=== PATIENT | female | born 1945 | race Caucasian/White ===

== ENCOUNTER 2019-05-05 11:17 | Observation (INO) ==
[2019-05-05] MEDS ORDERED: ASPIRIN PO ONE (11:33)
[2019-05-05 12:03] LABS: BASO# 0.02 X1000 (0.0-0.2); BASO% 0.4 % (0.0-0.8); EOS# 0.27 X1000 (0.0-0.7); EOS% 4.7 % (0.0-10.0); HEMATOCRIT 37.9 % (37.0-47.0); HEMOGLOBIN 11.7 g/dL (12.0-16.0); IMM GRAN# 0.04 X1000 (0.0-0.04); IMM GRAN% 0.7 % (0.0-0.5); LYMPH# 1.41 X1000 (1.2-3.4); LYMPH% 24.7 % (20.5-51.1); MCH 28.2 PG (27-31); MCHC 30.9 g/dL (33-37); MCV 91.3 FL (81-99); MONO# 0.37 X1000 (0.11-0.59); MONO% 6.5 % (1.7-9.3); MPV 9.8 FL (7.4-10.4); NEUT# 3.59 X1000 (1.4-6.5); PLT 290 X1000 (130-400); RBC 4.15 XMIL (4.2-5.4); RDW 12.3 % (11.5-14.5)
[2019-05-05 12:15] LABS: INR 0.95; PROTIME 13.2 Seconds (11.0-16.0)
[2019-05-05 12:16] LABS: PTT 30.3 Seconds (22.3-41.8)
[2019-05-05 12:19] LABS: AGAP 12; ALBUMIN 4.1 g/dL (3.5-5.0); ALKALINE PHOSPHATASE 98 U/L (32-104); BUN 10 mg/dL (8-22); CALCIUM 8.7 mg/dL (8.8-10.2); CHLORIDE 104 mmol/L (98-107); CK PROFILE 44 U/L (24-173); COSMO 281; CREATININE 0.9 mg/dL (0.5-0.9); ESTIMATED GFR > 60; GLUCOSE 148 mg/dL (70-104); GOT 13 U/L (10-30); GPT 7 U/L (10-36); POTASSIUM 3.9 mmol/L (3.5-5.1); SODIUM 140 mmol/L (136-145); TCO2 24 mmol/L (25-35); TOTAL PROTEIN 6.5 g/dL (6.3-8.3)
--- NOTE | 2019-05-05 13:01 | Diag Imaging Result Doc PS360 ---
EXAM: CHEST-2 VIEWS 05/05/2019 HISTORY: chest pain TECHNIQUE: PA and lateral chest COMMENT: There is minimal platelike atelectasis in the lingula which was not present on 07/23/2017. Otherwise the appearance the chest has not changed significantly. IMPRESSION: Minimal lingular atelectasis. Electronically signed by Ravi Servin 05/05/2019 12:58 PM
[2019-05-05] MEDS ORDERED: MORPHINE IV PRN (13:41)
[2019-05-05] MEDS ORDERED: ZOFRAN IV PRN (13:41)
--- NOTE | 2019-05-05 14:41 | EKG Report ---
Test Performed on : 05/05/2019 11:31:08 AM Test Reason : chest pain Blood Pressure : / mmHG Vent. Rate : 083 BPM Atrial Rate : 083 BPM P-R Int : 134 ms QRS Dur : 062 ms QT Int : 382 ms P-R-T Axes : 074 010 060 degrees QTc Int : 448 ms Normal sinus rhythm. Normal ECG When compared with ECG of 23-JUL-2017 17:54, No significant change was found Unconfirmed Result
[2019-05-05] MEDS ORDERED: XANAX PO ONE (14:42)
[2019-05-05] MEDS ORDERED: MORPHINE ONE (14:59)
[2019-05-05] MEDS ORDERED: ZOFRAN ONE (14:59)
[2019-05-05] MEDS ORDERED: MORPHINE IV ONE (15:13)
[2019-05-05] MEDS ORDERED: ZOFRAN IV ONE (15:13)
[2019-05-05] MEDS ORDERED: ZOFRAN ODT PO PRN (19:17)
[2019-05-05] MEDS ORDERED: IMITREX PO PRN (19:17)
[2019-05-05] MEDS ORDERED: PHENERGAN PO PRN (19:17)
[2019-05-05] MEDS: ZANAFLEX PO SCH (20:37)
[2019-05-05] MEDS: IMITREX PO PRN (20:37)
[2019-05-05] MEDS: XANAX PO PRN (20:42)
[2019-05-05] MEDS ORDERED: ZOLOFT PO SCH (21:00)
[2019-05-05] MEDS ORDERED: RESTORIL PO SCH ×2 (21:00)
[2019-05-05] MEDS ORDERED: LOVENOX 1 MG/KG SUBQ SCH (21:00)
[2019-05-05] MEDS ORDERED: TEMAZEPAM 60 MG PO SCH (21:00)
[2019-05-05] MEDS ORDERED: RESTORIL PO ONE (23:14)
[2019-05-06] MEDS: IMITREX PO PRN ×2 (01:52→13:03)
--- NOTE | 2019-05-06 04:30 | EKG Report ---
Test Performed on : 05/06/2019 00:47:35 AM Test Reason : cp Blood Pressure : / mmHG Vent. Rate : 049 BPM Atrial Rate : 049 BPM P-R Int : 164 ms QRS Dur : 066 ms QT Int : 502 ms P-R-T Axes : 060 023 069 degrees QTc Int : 453 ms Sinus bradycardia. Otherwise normal ECG When compared with ECG of 05-MAY-2019 11:31, (Unconfirmed) Vent. rate has decreased BY 34 BPM Confirmed by Patricio Joe MD ([id number]) on 05/14/2019 11:47:08 AM
[2019-05-06] MEDS: ZANAFLEX PO SCH ×2 (05:48→12:59)
[2019-05-06] MEDS ORDERED: SYNTHROID PO SCH ×3 (07:00→08:00)
--- NOTE | 2019-05-06 07:58 | PROVIDER DOCUMENTATION ---
This chart was entered by Elvira Bustillo Scribe, acting as scribe for Annika Figueroa MD. HPI-Chest Pain - General Chief Complaint: Chest Pain Stated Complaint: CHEST PAIN Time Seen by Provider: 05/05/19 12:02 Source: patient Allergies/Adverse Reactions: Patient Allergies Allergy/AdvReac Type Severity Reaction Status Date / Time codeine AdvReac NAUSEA Verified 07/23/17 17:49 Home Medications: Home Medication List Medication Instructions Recorded Confirmed Last Taken Type Alprazolam [Xanax] 1 mg PO 4XDAY PRN PRN 01/17/15 05/05/19 05/05/19 History Sertraline [Zoloft] 100 mg PO QHS 01/17/15 05/05/19 02/21/15 History Estrogens, Conjugated [Premarin] 0.625 mg PO DAILY 01/31/17 05/05/19 05/04/19 History Promethazine [Phenergan] 25 mg PO Q6H PRN PRN #20 tablet 01/31/17 05/05/19 Unknown Rx Tizanidine [Zanaflex] 4 mg PO Q8HR #20 tablet 01/31/17 05/05/19 Unknown Rx Sumatriptan Succinate [Imitrex] 50 mg PO DIRECTED PRN PRN #8 06/24/1808/11 Unknown Rx tablet Levothyroxine [Synthroid] 150 microgm PO DAILY@0700 05/05/19 05/05/19 Unknown History Temazepam [Restoril] 60 mg PO QHS 05/05/19 05/05/19 Unknown History - History of Present Illness-CP Nature of Presenting Problem: Patient is a 73 year old female who presents with left side chest pain. States diaphoresis and shortness of breath with chest pain. Reports symptoms started last night. Denies nausea. Location: reports: other (left side) Chest Pain Radiation: reports: no radiation Quality of Pain: reports: pressure Severity in ED: mild Onset/Duration: last night Timing: still present, intermittent, getting worse Context/Activities at Onset: reports: light activity Associated Symptoms: reports: diaphoresis, shortness of breath Similar Symptoms Previously?: Yes Recently Seen Here or By Another Healthcare Provider: No Review of Systems - Adult - REVIEW OF SYSTEMS - ADULT Constitutional: reports: no symptoms reported. denies: chills, fever, fatique Eyes: reports: no symptoms reported Ears, Nose, Mouth & Throat: reports: no symptoms reported Cardiovascular: reports: see HPI, chest pain. denies: irregular heart rate, palpitations Respiratory: reports: see HPI, shortness of breath. denies: cough, wheezing Gastrointestinal: reports: no symptoms reported Genitourinary: reports: no symptoms reported Musculoskeletal: reports: no symptoms reported Integumentary: reports: no symptoms reported Neurological: reports: no symptoms reported Psychiatric: reports: no symptoms reported Endocrine: reports: no symptoms reported Hematologic/Lymphatic: reports: no symptoms reported Allergic/Immunologic: reports: no symptoms reported All Other Systems: Reviewed and Negative Past History - Adult - PAST MEDICAL HISTORY-ADULT Review of Records: reports: Old Records Reviewed, Social history reviewed & non- contributory. Major Childhood Illnesses: reports: denies history Cardiovascular: reports: denies history Respiratory: reports: denies history Gastrointestinal: reports: denies history Obstetrical/Gynecological: reports: denies history Genitourinary: reports: denies history Musculoskeletal: reports: chronic pain, fibromyalgia Neurological: reports: headaches/migraines Psychiatric: reports: denies history Endocrine/Immune: reports: thyroid disorder Other Conditions: reports: denies history - PRIOR SURGERIES/PROCEDURES Surgical/Procedure History: reports: cholecystectomy, hysterectomy, joint replacement, back/neck - IMMUNIZATION STATUS Childhood Immunizations: See Nurse Assessment Flu Vaccine: See Nurse Assessment - FAMILY HISTORY Family History: reviewed, not pertinent - SOCIAL HISTORY Smoking: denies Substance Use: denies Living Situation: family Physical Exam-General - PHYSICAL EXAM-ADULT Initial Vital Signs Reviewed: Yes - CONSTITUTIONAL General Appearance: alert, no apparent distress. negative: lethargic - HEAD, EARS, NOSE, MOUTH & THROAT HENMT: normocephalic/atraumatic, moist mucous membranes. negative: angioedema - RESPIRATORY Respiratory: chest non-tender, lungs clear, normal breath sounds. negative: respiratory distress, crackles, rhonchi - CARDIOVASCULAR Cardiovascular: normal peripheral pulses, regular rate, rhythm. negative: tachycardia - GASTROINTESTINAL (ABDOMEN) Abdominal Exam: normal bowel sounds, non tender, soft. negative: distended, guarding, rigid - MUSCULOSKELETAL Extremity: normal inspection. negative: deformity, erythema - SKIN Integumentary: normal color, normal turgor, warm/dry. negative: diaphoresis, jaundice, rash - NEUROLOGIC Neurologic: grossly normal. negative: aphasia, facial droop - PSYCHIATRIC Psych/Mental Status: normal mood/affect, oriented x 3. negative: anxious, paranoid - HEART Score HEART Score: History: Slightly Suspicious HEART Score: ECG: Non-Specific Repolarization Disturbance/LBBB/PM HEART Score: Age: > or = 65 Years HEART Score: Risk Factors for Atherosclerotic Disease: 1 or 2 Risk Factors HEART Score: Troponin: < or = Normal Limit Total HEART Score:: 4 Progress - PLAN OF CARE/RESULTS Result Diagrams: 05/05/19 11:47 05/05/19 11:47 - EKG 1 Time of EKG reading by physician:: 11:31 EKG Read and Signed by:: Annika Figueroa EKG Interpretation (*Must complete 3 of following elements*): Normal Rate: 83 Rhythm: normal sinus rhythm Bogard: normal QRS: normal SC Interval: normal ST Wave: normal Comments: normal ECG - XRAY 1 XRAY Study: Chest Impression: See EMR Report ( EXAM: CHEST-2 VIEWS 05/05/2019 HISTORY: chest pain TECHNIQUE: PA and lateral chest COMMENT: There is minimal platelike atelectasis in the lingula which was not present on 07/23/2017. Otherwise the appearance the chest has not changed significantly. IMPRESSION: Minimal lingular atelectasis. Electronically signed by Ravi Servin 05/05/2019 12:58 PM 05/05/19 1258 Interpreting Physician: Ravi Servin MD Dictated Date/Time: 05/05/19 1258 cc: Annika Figueroa MD; Patricio Joe MD) - CONSULTS/PCP/HOSPITALIST Notification #1 *Consult/PCP/Hospitalist*: Dr. Joe Time Discussed: 13:40 Reason/Comments: Dr. Figueroa consulted with Dr. Joe about patient. Consult Disposition: Admit Departure - Departure Date of Disposition Decision: 05/05/19 Time of Disposition Decision: 13:40 DIAGNOSIS: Chest pain Disposition: ADMITTED INPATIENT 09 Certified Medical Emergency: Emergent Condition: Stable - Critical Care Note This patient required my direct & personal management of CC.: No Attestation - Physician/ SANTA Attestation The physician spent face to face time with patient:: Yes Advanced Practice Provider documentation review:: Supervising physician onsite and consulted in the evaluation and care of this patient. The physician did have a face to face encounter with the patient. This chart was documented by the indicated scribe, (Elvira Bustillo Scribe) and accurately reflects the services I performed and decisions made by , Annika Figueroa MD, as attested by the provider's signature.
[2019-05-06] MEDS ORDERED: ASPIRIN PO SCH (09:00)
[2019-05-06] MEDS ORDERED: PREMARIN PO SCH (09:00)
[2019-05-06] MEDS ORDERED: ZOFRAN ODT PO PRN (09:58)
[2019-05-06] MEDS: XANAX PO PRN (12:59)
--- NOTE | 2019-05-06 13:31 | CONSULTATION ---
DATE OF CONSULTATION: 05/06/2019 IMPRESSION: 1. Chest discomfort, predominantly atypical for myocardial ischemia. ECG normal. Serial cardiac enzymes normal. The patient has history of 2 previous negative coronary angiograms in the past for similar chest discomfort. 2. Anxiety disorder. RECOMMENDATION: Follow through with Lexiscan myocardial perfusion study in progress at the time I see her. If negative, her chest symptoms are probably noncardiac; and it would be reasonable for her to go home. HISTORY: This 73-year-old white female with a past history of anxiety disorder was admitted through the emergency room for evaluation of chest pain. She relates low central chest heaviness with mild shortness of breath. It started at rest. The symptoms were rather persistent for at least an hour. She came to the emergency room and symptoms resolved. She had some brief recurrence in the middle of the night last night. She was hospitalized yesterday afternoon. She relates history of 2 previous coronary angiograms in the past in [place], [place], for similar chest symptoms. She was told she had no coronary stenosis, and she was suspected as having anxiety. She is on anxiolytics and also sertraline. She denies any exertional chest discomfort. She is a nonsmoker and has no history of hypertension, diabetes mellitus nor hyperlipidemia. She does have a history of hypothyroidism. PAST MEDICAL HISTORY: 1. Anxiety disorder. 2. Hypothyroidism. 3. She is allergic [*codeine. 4. Medications prior to admission as listed. SOCIAL HISTORY: She does not smoke nor use alcohol. FAMILY HISTORY: Negative for premature coronary disease. REVIEW OF SYSTEMS: Pulmonary: Noncontributory. Gastrointestinal: Noncontributory. The remainder of the review of systems negative/noncontributory with 14 total systems reviewed. PHYSICAL EXAMINATION: General: This is a somewhat anxious-appearing older white female in no distress. Vital signs: Blood pressure 144/65, heart rate 56 and regular, oxygen saturation 97%. HEENT: Extraocular movements intact. Mucous membranes moist. Neck: Supple without jugular distention. There are no carotid bruits. Chest: Clear to auscultation. Cardiac: Exam reveals a regular rate and rhythm without appreciable murmur or gallop. Abdomen: Soft. Bowel sounds are normal. Extremities: Without edema. Neurologic: Exam reveals her to be alert and fully oriented. Speech is fluent. Moves all 4 extremities equally well. Skin: Warm and dry. Psychiatric: Exam reveals her to be somewhat anxious. 12-lead EKG demonstrates sinus rhythm and is within normal limits. Laboratory data includes a WBC of 5.7, hematocrit 37.9, hemoglobin 11.9, platelet count 290,000, sodium 140, potassium 3.9, chloride 104, carbon dioxide 24, BUN 10, creatinine 0.9, glucose 148. Initial troponin less than 0.01 with follow-up troponins of less than 0.01, less than 0.01 and less than 0.01. cc: MD Patricio Schmid MD MTDD
--- NOTE | 2019-05-06 18:10 | Diag Imaging Result Document ---
PROCEDURE NAME: MYOCARDIAL PERF SCAN, STR/REST - 05/05/2019 INDICATION: Chest pain. PROCEDURES PERFORMED: 1. Lexiscan stress (results dictated separately by performing physician). 2. One-day stress rest myocardial perfusion imaging. FINDINGS: 1. No evidence of abnormal extracardiac uptake. 2. TID ratio 0.89. No evidence of transient ischemic dilatation. 3. Perfusion imaging demonstrates normal homogenous uptake of radiotracer throughout the myocardial segments. There is no evidence of stress-related defects. 4. Normal ejection fraction of 90%. The end-diastolic volume is 44. End systolic volume is 4. Normal wall motion. cc: MD Patricio Fu MD
[2019-05-06] MEDS ORDERED: LEXISCAN ONE (19:03)
[2019-05-06 19:50] VITALS: BP 108/55
== END 2019-05-06 20:01 | disposition home or self-care (01) ==
LOC: P.ED 11:17 → P.MEDSURG 11:17
PROVIDERS: ADMIT Internal Medicine; ATTEND Internal Medicine